=== PATIENT | male | born 1950 | race Caucasian/White ===

== ENCOUNTER 2025-04-07 06:38 | Emergency (ER) | payer OTHER ==
[~2025-04-07] VITALS: Ht 188 cm; Wt 104.0 kg
[2025-04-07] MEDS ORDERED: NITROGLYCERIN PACKET TOP ONE (06:45)
[2025-04-07] MEDS ORDERED: ASPIRIN 81 MG CHEW PO ONE (06:45)
[2025-04-07] MEDS ORDERED: LIPITOR10 MG (06:50)
[2025-04-07] MEDS ORDERED: HYDROCHLOROTH12.5 MG PO (06:50)
[2025-04-07] MEDS ORDERED: ASPIRIN81 MG PO (06:50)
[2025-04-07] MEDS ORDERED: NORVASC5 MG PO (06:50)
[2025-04-07 07:14] LABS: INR 1.02 (0.80-1.30); PROTIME 13.0 Sec (11.2-14.2)
[2025-04-07 07:16] LABS: ALT (SGPT) 44.0 U/L (14-59); AST (SGOT) 29.0 U/L (15-37); GLOMERULAR FILTRATION RATE,EST 53.0 mL/min (>60); PROTEIN, TOTAL 7.1 g/dL (6.4-8.2); UREA NITROGEN 19.0 mg/dL (7-18)
[2025-04-07 07:32] LABS: BASOPHILS 1.1 % (0.2-1.2); EOSINOPHILS 4.7 % (0.8-7.0); LYMPHOCYTES 31.1 % (21.8-53.1); MCH 31.6 PG (25.7-32.2); MCHC 33.6 g/dL (32.3-36.5); MCV 94.1 fL (79.0-92.2); MONOCYTES 9.8 % (5.3-12.2); NEUTROPHILS 53.1 % (34.0-67.9); RBC 4.59 M/uL (4.63-6.08)
[2025-04-07] MEDS ORDERED: HEPARIN SOD,PORK IN 0.45% NACL 500 ML IV SCH (07:45)
[2025-04-07] MEDS ORDERED: POTASSIUM CHLORIDE 10 MEQ TABCR PO ONE (08:30)
[2025-04-07 11:31] VITALS: BP 144/87
--- NOTE | 2025-04-07 14:44 | EKG ---
[facility] [address] [facility] [place], [place] [address] Signed Sinus rhythm with frequent premature ventricular complexes Minimal voltage criteria for LVH, may be normal variant ( R in aVL ) Borderline ECG No previous ECGs available Confirmed by HSAKA BALDERAS MD ([id number]) on 04/07/2025 2:44:32 PM Electronically Signed By: SHAKA BALDERAS 04/07/25 1444 PATIENT NAME: LEVILUCIO Electrocardiogram DATE OF : 46 PHYSICIAN: SHAKA BALDERAS REPORT #: [id number] REPORT IS CONFIDENTIAL AND NOT TO BE RELEASED WITHOUT AUTHORIZATION
== END 2025-04-07 11:31 | disposition short-term general hospital (02) ==
LOC: ED 06:38
PROVIDERS: Family Medicine
DX: I21.4 Non-ST elevation (NSTEMI) myocardial infarction (principal); I10 Essential (primary) hypertension; Z86.73 Personal history of transient ischemic attack (TIA), and cerebral infarction without residual deficits; Z79.82 Long term (current) use of aspirin; Z79.899 Other long term (current) drug therapy
CPT/HCPCS: 36415; 71045; 80053; 83735; 83880; 84484; 85025; 85379; 85610; 93005; 93010; 96374; 99285-25; A9270; J1644